=== PATIENT | male | born 1945 | race Caucasian/White ===

== ENCOUNTER → 2016-11-15 | Outpatient (CLI) | payer MEDICARE ==
[~2016-11-15] VITALS: Ht 170.2 cm; Wt 65.3 kg
[~2016-11-15] MED LIST: LIDOCAINE 2% INJ 100 MG/5 ML SDV (FOR ANES.) As Ordered ONE; NS 1,000 ML IV ONE; OMEP40CA2 PO; PROPOFOL 500 MG/50 ML VIAL As Ordered ONE
--- NOTE | 2016-11-15 10:12 | ROOR ---
Patient Name: Val Hagan Procedure Date: 11/15/2016 9:56 AM Date of : 1945 Age: 71 Room: [facility] Gender: Male Note Status: Finalized Procedure: Upper GI endoscopy + Biopsies Indications: Follow-up of Canela's esophagus Providers: Juliocesar Ladd MD Referring MD: IRMA DERAS JR, MD Requesting Provider: Medicines: Monitored Anesthesia Care Complications: No immediate complications. Procedure: Pre-Anesthesia Assessment: - The heart rate, respiratory rate, oxygen saturations, blood pressure, adequacy of pulmonary ventilation, and response to care were monitored throughout the procedure. The Endoscope was introduced through the mouth, and advanced to the second part of duodenum. The upper GI endoscopy was accomplished without difficulty. The patient tolerated the procedure well. Findings: The Z-line was irregular and was found 40 cm from the incisors. Multiple biopsies were obtained with cold forceps for evaluation to rule out Canela's Esophagus randomly at the gastroesophageal junction. A small hiatal hernia was present. No other significant abnormalities were identified in a careful examination of the stomach. The exam of the duodenum was otherwise normal. Impression: - Z-line irregular, 40 cm from the incisors. - Small hiatal hernia. - Multiple biopsies were obtained at the gastroesophageal junction. - The examination was otherwise normal. Recommendation: - Patient has a contact number available for emergencies. The signs and symptoms of potential delayed complications were discussed with the patient. Return to normal activities tomorrow. Written discharge instructions were provided to the patient. - High fiber diet. - Discharge patient to home. - Follow an antireflux regimen. - Continue present medications. - Await pathology results. - Telephone GI clinic for pathology results in 1 week. - Return to referring physician. - The findings and recommendations were discussed with the patient's family. - Repeat upper endoscopy for surveillance based on pathology results. - The findings and recommendations were discussed with the patient's family. Juliocesar Ladd MD Juliocesar Ladd MD 11/15/2016 10:11:52 AM This report has been signed electronically. Number of Addenda: 0 Note Initiated On: 11/15/2016 9:56 AM Estimated Blood Loss: Estimated blood loss: none.
[2016-11-15 10:30] VITALS: BP 134/82
== END | disposition home or self-care (01) ==
LOC: M OPP 09:05
PROVIDERS: ATTEND Internal Medicine Gastroenterology
DX: K22.70 Barrett's esophagus without dysplasia (principal); K22.8 Other specified diseases of esophagus; K44.9 Diaphragmatic hernia without obstruction or gangrene; K31.89 Other diseases of stomach and duodenum; R12 Heartburn; F17.210 Nicotine dependence, cigarettes, uncomplicated; Z79.899 Other long term (current) drug therapy

== ENCOUNTER → 2017-04-15 | Outpatient (CLI) | payer MEDICARE ==
[~2017-04-15] MED LIST changes: -LIDOCAINE 2% INJ 100 MG/5 ML SDV (FOR ANES.) As Ordered ONE; -NS 1,000 ML IV ONE; -PROPOFOL 500 MG/50 ML VIAL As Ordered ONE
--- NOTE | 2017-04-15 17:14 | REP ---
Low-dose screening chest CT without contrast: History: Nicotine dependence. Comparison CT study April 08, 2016. CT findings: There has been no change in the previously noted noncalcified nodular opacities seen in the right middle lobe and lingula or along the major fissure on the left. These have a stable appearance. No new pulmonary nodule is seen. However, there is a nodular density along the left lateral wall of the trachea on today's study measuring 0.7 cm. This is a new finding. It could be mucous, but I cannot exclude a tracheal polypoid nodule or early mass lesion. There is a thin linear string seen in the left mainstem bronchus, which mitigates towards mucoid debris adherent to the tracheal wall. No other endobronchial disease is seen. There is evidence of mild bronchiectasis in the lower lobes bilaterally, unchanged. Scan is otherwise unremarkable. Impression: Positive study. 7 mm nodule along the left lateral wall of the trachea at the level of the transverse aorta. A new finding. Tracheal polyp versus mucoid debris. Recommend repeat dedicated chest CT study to further evaluation. Multiple previously noted noncalcified nodular densities are stable. The study is otherwise unremarkable. Signed by Atul Schroeder MD 04/15/2017 07:23 P
== END ==
LOC: M RAD 13:54
PROVIDERS: ATTEND Internal Medicine Pulmonary Disease
DX: Z12.2 Encounter for screening for malignant neoplasm of respiratory organs (principal); F17.218 Nicotine dependence, cigarettes, with other nicotine-induced disorders; J39.8 Other specified diseases of upper respiratory tract

== ENCOUNTER → 2017-07-29 | Outpatient (CLI) | payer MEDICARE | LOC: M RAD 14:43 | DX: R91.8 Other nonspecific abnormal finding of lung field (principal) | CPT/HCPCS: 71250 ==

== ENCOUNTER → 2017-09-14 | Outpatient (REF) | payer MEDICARE ==
[2017-09-16 00:07] LABS: Lyme Disease IgG Ab 18 kDa Ban Present (.); Lyme Disease IgG Ab 23 kDa Ban Absent (.); Lyme Disease IgG Ab 28 kDa Ban Absent (.); Lyme Disease IgG Ab 30 kDa Ban Absent (.); Lyme Disease IgG Ab 39 kDa Ban Present (.); Lyme Disease IgG Ab 41 kDa Ban Present (.); Lyme Disease IgG Ab 45 kDa Ban Present (.); Lyme Disease IgG Ab 58 kDa Ban Present (.); Lyme Disease IgG Ab 66 kDa Ban Present (.); Lyme Disease IgG Ab 93 kDa Ban Present (.); Lyme Disease IgG West Blot Int Positive (.); Lyme Disease IgG/IgM Antibodie 1.75 ISR (0.00-0.90); Lyme Disease IgM Ab 23 kDa Ban Present (.); Lyme Disease IgM Ab 39 kDa Ban Absent (.); Lyme Disease IgM Ab 41 kDa Ban Present (.); Lyme Disease IgM Ab Quantitati 1.61 index (0.00-0.79); Lyme Disease IgM West Blot Int Positive (.)
== END ==
LOC: M LAB REF 12:03
DX: A69.20 Lyme disease, unspecified (principal)
CPT/HCPCS: 86617

== ENCOUNTER 2018-07-31 10:26 | Day surgery (SDC) | payer MEDICARE ==
[~2018-07-31] VITALS: Ht 170.2 cm; Wt 62.5 kg
[~2018-07-31 10:26] MED LIST changes: +NS 1,000 ML IV ONE
[2018-07-31] MEDS ORDERED: PROPOFOL 500 MG/50 ML VIAL As Ordered ONE (11:43)
[2018-07-31] MEDS ORDERED: fentaNYL 100 MCG/2 ML INJECTION (J3010) As Ordered ONE (11:44)
--- NOTE | 2018-07-31 13:03 | ROOR ---
Patient Name: Val Haagn Procedure Date: 07/31/2018 12:44 PM Date of : 1945 Age: 73 Room: [facility] Gender: Male Note Status: Finalized Procedure: Upper Endoscopy + Biopsies Indications: Heartburn, Exclusion of Canela's esophagus, Follow-up of Canela's esophagus Providers: Juliocesar Ladd MD Referring MD: IRMA DERAS JR, MD Requesting Provider: Medicines: Monitored Anesthesia Care Complications: No immediate complications. Procedure: Pre-Anesthesia Assessment: - The heart rate, respiratory rate, oxygen saturations, blood pressure, adequacy of pulmonary ventilation, and response to care were monitored throughout the procedure. The Endoscope was introduced through the mouth, and advanced to the second part of duodenum. The upper GI endoscopy was accomplished without difficulty. The patient tolerated the procedure well. Findings: The Z-line was irregular and was found 35 cm from the incisors. Multiple biopsies were obtained with cold forceps for evaluation to rule out Cnaela's Esophagus randomly at the gastroesophageal junction. A small hiatal hernia was present. No other significant abnormalities were identified in a careful examination of the stomach. The exam of the duodenum was otherwise normal. Impression: - Z-line irregular, 35 cm from the incisors. - Small hiatal hernia. - Multiple biopsies were obtained at the gastroesophageal junction. - The examination was otherwise normal. Recommendation: - Patient has a contact number available for emergencies. The signs and symptoms of potential delayed complications were discussed with the patient. Return to normal activities tomorrow. Written discharge instructions were provided to the patient. - High fiber diet. - Discharge patient to home. - Follow an antireflux regimen. - Continue present medications. - Await pathology results. - Telephone GI clinic for pathology results in 1 week. - Return to referring physician. - Check Portal Online for Path Results.([email or web address]) - The findings and recommendations were discussed with the patient's family. Juliocesar Ladd MD Juliocesar Ladd MD 07/31/2018 1:02:51 PM This report has been signed electronically. Number of Addenda: 0 Note Initiated On: 07/31/2018 12:44 PM Estimated Blood Loss: Estimated blood loss: none.
--- NOTE | 2018-07-31 13:20 | ROOR ---
Patient Name: Val Hagan Procedure Date: 07/31/2018 12:45 PM Date of : 1945 Age: 73 Room: [facility] Gender: Male Note Status: Finalized Procedure: Total Colonoscopy to Cecum + Cold Snare Polypectomy Indications: Screening for colorectal malignant neoplasm Providers: Juliocesar Ladd MD Referring MD: IRMA DERAS JR, MD Requesting Provider: Medicines: Monitored Anesthesia Care Complications: No immediate complications. Procedure: Pre-Anesthesia Assessment: - The heart rate, respiratory rate, oxygen saturations, blood pressure, adequacy of pulmonary ventilation, and response to care were monitored throughout the procedure. The Colonoscope was introduced through the anus and advanced to the cecum, identified by appendiceal orifice and ileocecal valve. The colonoscopy was performed without difficulty. The patient tolerated the procedure well. The quality of the bowel preparation was excellent. Findings: The perianal and digital rectal examinations were normal. Non-bleeding internal hemorrhoids were found during retroflexion. The hemorrhoids were small and Grade I (internal hemorrhoids that do not prolapse). A small polyp was found at 40 cm proximal to the anus. The polyp was sessile. The polyp was removed with a cold snare. Resection and retrieval were complete. The exam was otherwise without abnormality on direct and retroflexion views. Impression: - Non-bleeding internal hemorrhoids. - One small polyp at 40 cm proximal to the anus, removed with a cold snare. Resected and retrieved. - The examination was otherwise normal on direct and retroflexion views. - The exam was otherwise normal to the cecum. Recommendation: - Patient has a contact number available for emergencies. The signs and symptoms of potential delayed complications were discussed with the patient. Return to normal activities tomorrow. Written discharge instructions were provided to the patient. - High fiber diet. - Discharge patient to home. - Continue present medications. - Await pathology results. - Telephone GI clinic for pathology results in 1 week. - Repeat colonoscopy for symptoms only. - Return to referring physician. - The findings and recommendations were discussed with the patient's family. Juliocesar Ladd MD Juliocesar Ladd MD 07/31/2018 1:20:02 PM This report has been signed electronically. Number of Addenda: 0 Note Initiated On: 07/31/2018 12:45 PM Estimated Blood Loss: Estimated blood loss: none.
[2018-07-31 13:59] VITALS: BP 141/72
== END 2018-07-31 14:02 | disposition home or self-care (01) ==
LOC: M OPP 10:26
PROVIDERS: ATTEND Internal Medicine Gastroenterology
DX: Z12.11 Encounter for screening for malignant neoplasm of colon (principal); R12 Heartburn; K63.5 Polyp of colon; K64.0 First degree hemorrhoids; K22.8 Other specified diseases of esophagus; K44.9 Diaphragmatic hernia without obstruction or gangrene; K22.70 Barrett's esophagus without dysplasia; F17.210 Nicotine dependence, cigarettes, uncomplicated; Z79.899 Other long term (current) drug therapy
CPT/HCPCS: 43239; 45385; 88305; J3010

== ENCOUNTER → 2018-08-14 | Outpatient (CLI) | payer MEDICARE ==
[~2018-08-14] MED LIST changes: -NS 1,000 ML IV ONE
--- NOTE | 2018-08-14 20:10 | REP ---
LOW DOSE LUNG SCREENING CT: Low dose lung screening CT was performed in the axial plane. Comparison is made with prior study most recently 07/29/2017. Subcentimeter ill-defined nodular opacity medially in right upper lobe and another in the lateral segment of the right middle lobe are unchanged. Subcentimeter nodule in the left upper lobe is stable. There is another subcentimeter nodule along the major fissure just below the left hilum which is stable, a subpleural subcentimeter nodular density in the lingula is stable. No new nodules are seen bilaterally. There is mild bronchiectasis. Heart is normal in size. No pleural effusion is seen. There are degenerative changes of the spine. There are mild atherosclerotic calcifications of the thoracic aorta. In the right trachea there is mild wall thickening which is of uncertain significance. This could represent transient mucous material. IMPRESSION: Stable subcentimeter nodules in both lungs, with no new parenchymal nodule identified. There is mild wall thickening of the right side of the trachea which may simply represent transient mucous material. Recommend repeat CT of the chest with IV contrast to further evaluate. Electronically Signed by Bertin Peters MD 08/15/2018 10:35 A
== END ==
LOC: M RAD 15:43
PROVIDERS: ATTEND Internal Medicine Pulmonary Disease
DX: Z12.2 Encounter for screening for malignant neoplasm of respiratory organs (principal); F17.218 Nicotine dependence, cigarettes, with other nicotine-induced disorders; R91.8 Other nonspecific abnormal finding of lung field

== ENCOUNTER → 2018-08-17 | Outpatient (CLI) | payer MEDICARE ==
[2018-08-17 14:15] LABS: BLOOD UREA NITROGEN 15 MG/DL (7-18); GLOMERULAR FILTRATION RATE > 60.0 (>42)
== END ==
LOC: M SMT 09:29
PROVIDERS: ATTEND Internal Medicine Pulmonary Disease
DX: R91.8 Other nonspecific abnormal finding of lung field (principal)

== ENCOUNTER → 2018-09-06 | Outpatient (CLI) | payer MEDICARE ==
[~2018-09-06] MED LIST changes: +ISOVUE-370 76% 100ML VIAL (Q9967) As Ordered ONE
--- NOTE | 2018-09-06 17:29 | REP ---
CT of the chest with IV contrast for follow up of lung nodules: Comparisons are the most recent prior study of 08/14/2018, 07/29/2017, and 04/10/2013. There are the following nodules are all stable and unchanged from 04/10/2013: Image 56, right upper lobe. Image 59, right middle lobe. Image 66, along the left major fissure. Image 75, right middle lobe. Image 77, right middle lobe. Image 80, along the left major fissure. No new lung nodules are identified. There are no acute infiltrates or pleural effusions. There is no mediastinal or hilar lymph node enlargement. There is no axillary lymph node enlargement. The thoracic aorta is unremarkable. Cardiac size is normal. There is calcified atheroma in the anterior descending branch of the coronary arteries. The visualized upper abdominal contents are unremarkable. There is no adrenal mass. There is a small volume of mucoid secretion in the trachea posterolaterally on the left on image 19. This was not present 08/14/2018, however, there is a similar finding posterolaterally on the right on 08/14/2018. Impression: Stable lung nodules as described. No new lung nodules. No acute cardiopulmonary findings. Electronically Signed by eBrtin Morrow MD 09/06/2018 05:21 P
== END ==
LOC: M RAD 14:58
PROVIDERS: ATTEND Internal Medicine Pulmonary Disease
DX: R91.8 Other nonspecific abnormal finding of lung field (principal)
CPT/HCPCS: 71260; Q9967

== ENCOUNTER → 2020-08-22 | Outpatient (REF) | payer MEDICARE ==
[~2020-08-22] MED LIST changes: -ISOVUE-370 76% 100ML VIAL (Q9967) As Ordered ONE; -OMEP40CA2 PO; +OMEP40CA97 PO
[2020-08-22 13:33] LABS: PERCENT SATURATION 23.7 % (19.7-50.0)
== END ==
LOC: M LAB REF 12:43
PROVIDERS: ATTEND Internal Medicine
DX: D56.8 Other thalassemias (principal)

== ENCOUNTER → 2021-12-13 | Outpatient (CLI) | payer MEDICARE ==
[~2021-12-13] MED LIST changes: +OMEP40CA4 PO; -OMEP40CA97 PO
== END ==
LOC: M LABSMTC 10:21
PROVIDERS: ATTEND Anesthesiology
DX: Z01.818 Encounter for other preprocedural examination (principal); Z11.52 Encounter for screening for COVID-19

== ENCOUNTER 2021-12-16 11:23 | Day surgery (SDC) | payer MEDICARE ==
[~2021-12-16] VITALS: Ht 170.2 cm; Wt 59.4 kg
[~2021-12-16 11:23] MED LIST changes: +NS 1,000 ML IV ONE
[2021-12-16] MEDS ORDERED: propofoL 200 MG/20 ML VIAL As Ordered ONE (11:31)
[2021-12-16] MEDS ORDERED: LIDOCAINE 2% 100MG/5ML SDV (FOR ANES.) As Ordered ONE (11:31)
[2021-12-16] MEDS ORDERED: fentaNYL 100 MCG/2 ML INJECTION As Ordered ONE (11:32)
[2021-12-16 13:25] VITALS: BP 136/72
== END 2021-12-16 13:30 | disposition home or self-care (01) ==
LOC: M OPP 11:23
PROVIDERS: ATTEND Internal Medicine Gastroenterology
DX: K22.70 Barrett's esophagus without dysplasia (principal); K20.90 Esophagitis, unspecified without bleeding; K44.9 Diaphragmatic hernia without obstruction or gangrene; F17.210 Nicotine dependence, cigarettes, uncomplicated; Z79.899 Other long term (current) drug therapy
CPT/HCPCS: 43239; 88305; J3010

== ENCOUNTER → 2023-04-12 | Outpatient (CLI) | payer MEDICARE ==
[~2023-04-12] MED LIST changes: -NS 1,000 ML IV ONE
== END ==
LOC: M RAD 07:32
PROVIDERS: ATTEND Internal Medicine
DX: F17.200 Nicotine dependence, unspecified, uncomplicated (principal)

== ENCOUNTER → 2024-06-11 | Outpatient (CLI) | payer MEDICARE | LOC: M RAD 15:26 | PROVIDERS: ATTEND Internal Medicine | DX: Z12.2 Encounter for screening for malignant neoplasm of respiratory organs (principal); F17.210 Nicotine dependence, cigarettes, uncomplicated ==

== ENCOUNTER → 2024-08-20 | Outpatient (CLI) | payer MEDICARE | LOC: M PLAIMG 07:33 | PROVIDERS: ATTEND Internal Medicine Pulmonary Disease | DX: R91.8 Other nonspecific abnormal finding of lung field (principal) ==